=== PATIENT | female | born 1945 | race African-American/Black ===

== ENCOUNTER 2019-11-10 09:46 | Inpatient (IN) | payer MEDICARE, MEDICAID ==
[~2019-11-10] VITALS: Ht 162.6 cm; Wt 92.6 kg
[2019-11-10] MEDS ORDERED: ACETAMINOPHEN 325MG TABLET PO STA (16:18)
[2019-11-10] MEDS ORDERED: SODIUM CHLORIDE 0.9% 1,000 ML IV ONE (16:18)
[2019-11-10 17:17] LABS: BASOPHILS % 1.2 % (0.0-2.0); EOSINOPHILS % 0.6 % (0.0-5.0); HEMATOCRIT. 45.6 % (36.0-48.0); HEMOGLOBIN. 15.4 g/dL (12.0-16.0); LYMPHOCYTES % 29.9 % (20.0-50.0); MEAN CORPUSCULAR VOLUME 80.3 fL (81.0-99.0); MEAN PLATELET VOLUME 9.3 fl (7.4-10.4); MONOCYTES % 7.5 % (2.0-8.0); NEUTROPHILS % 60.8 % (40.0-76.0); PLATELET 260 x1000/uL (130-400); RED BLOOD CELL COUNT 5.68 mill/uL (4.2-5.4); RED CELL DISTRIBUTION WIDTH 14.3 % (11.6-14.6)
[2019-11-10 17:21] LABS: CHLORIDE 102 mEq/L (98-107)
[2019-11-10 17:28] LABS: BETA HYDROXYBUTYRATE 0.5 mMol/L (0.0-0.3); INR 1.1; PROTHROMBIN TIME 10.9 sec (9.6-11.0)
[2019-11-10] MEDS ORDERED: ASPIRIN 81MG TABLET PO ONE (18:30)
[2019-11-10] MEDS ORDERED: ENOXAPARIN 80MG/0.8ML SYR SUBCUT ONE (18:30)
[2019-11-10 19:28] LABS: CLARITY URINE TURBID (CLEAR); COLOR URINE YELLOW (YELLOW); KETONES URINE TRACE (NEGATIVE); LEUKOCYTE ESTERASE URINE 2+ (NEGATIVE); NITRITE URINE NEGATIVE (NEGATIVE); OCCULT BLOOD URINE 2+ (NEGATIVE); PROTEIN URINE 3+ (NEGATIVE); SPECIFIC GRAVITY URINE 1.022 (1.005-1.030); UROBILINOGEN URINE 0.2 E.U./dL (0.2-1.0)
[2019-11-11] VITALS (10 sets, daily range): BP systolic 90–175; BP diastolic 54–96
[2019-11-11] MEDS ORDERED: ONDANSETRON HCL 4MG/2ML INJ IV PRN (00:45)
[2019-11-11] MEDS ORDERED: CLONIDINE 0.2MG TABLET PO PRN (00:45)
[2019-11-11] MEDS ORDERED: IPRATROPIUM/ALBUTEROL 0.5-3(2.5)MG/3ML NEB HHN PRN (00:45)
[2019-11-11] MEDS ORDERED: MAGNESIUM/ALUMINUM HYDROXIDE/SIMETHICONE 30ML UDC PO PRN (00:45)
[2019-11-11] MEDS ORDERED: DIPHENHYDRAMINE 50MG/ML VIAL IV PRN (00:45)
[2019-11-11] MEDS ORDERED: DEXTROSE 50% WATER 50ML SYRINGE IV PRN (00:45)
[2019-11-11] MEDS: SODIUM CHLORIDE 0.9% INJ 3ML FLUSH IVF SCH ×3 (05:27→21:11)
[2019-11-11] MEDS: CLONIDINE 0.1MG TABLET PO SCH ×3 (05:27→21:07)
[2019-11-11] MEDS: BLOOD SUGAR DIAGNOSTIC STRIP TEST SCH ×4 (07:30→21:11)
[2019-11-11] MEDS: INSULIN LISPRO 100 UNITS/ML SUBCUT SCH ×4 (08:00→21:00)
[2019-11-11] MEDS ORDERED: FAMOTIDINE 20MG TABLET PO SCH (09:00)
[2019-11-11] MEDS ORDERED: ASPIRIN 81MG EC TABLET PO SCH (09:00)
[2019-11-11] MEDS: INSULIN GLARGINE UD 100 UNITS/ML SYR SUBCUT SCH (10:12)
[2019-11-11] MEDS: GUAIFENESIN 200MG/10ML SUGAR FREE UDC PO PRN ×2 (10:15→17:23)
[2019-11-11] MEDS ORDERED: REGADENOSON 0.4 MG/5 ML IV SCH (11:45)
[2019-11-11] MEDS: ACETAMINOPHEN 325MG TABLET PO PRN (17:23)
[2019-11-11] MEDS: ATORVASTATIN CALCIUM 40MG TABLET PO SCH (21:07)
[2019-11-11] MEDS: FAMOTIDINE 40MG TABLET PO SCH (21:08)
[2019-11-11] MEDS: METOPROLOL TARTRATE 25MG TABLET PO SCH (21:08)
[2019-11-12] VITALS (13 sets, daily range): BP systolic 94–165; BP diastolic 14–86
[2019-11-12] MEDS: CLONIDINE 0.1MG TABLET PO SCH ×3 (06:00→23:01)
[2019-11-12] MEDS: BLOOD SUGAR DIAGNOSTIC STRIP TEST SCH ×4 (07:30→21:58)
[2019-11-12] MEDS: INSULIN LISPRO 100 UNITS/ML SUBCUT SCH ×4 (08:02→22:10)
[2019-11-12] MEDS: ASPIRIN 81MG TABLET PO SCH (08:03)
[2019-11-12] MEDS: FAMOTIDINE 40MG TABLET PO SCH ×2 (08:03→22:08)
[2019-11-12] MEDS: METOPROLOL TARTRATE 25MG TABLET PO SCH ×2 (08:03→22:08)
[2019-11-12] MEDS: SODIUM CHLORIDE 0.9% INJ 3ML FLUSH IVF SCH ×3 (08:17→23:01)
[2019-11-12] MEDS: INSULIN GLARGINE UD 100 UNITS/ML SYR SUBCUT SCH (10:12)
[2019-11-12] MEDS: ACETAMINOPHEN 325MG TABLET PO PRN ×2 (13:48→22:07)
[2019-11-12] MEDS ORDERED: KETOROLAC 30MG/ML VIAL IV PRN (15:00)
[2019-11-12] MEDS: ATORVASTATIN CALCIUM 40MG TABLET PO SCH (22:08)
[2019-11-13] VITALS (7 sets, daily range): BP systolic 117–144; BP diastolic 59–83
[2019-11-13] MEDS: CLONIDINE 0.1MG TABLET PO SCH ×2 (05:52→18:43)
[2019-11-13] MEDS: SODIUM CHLORIDE 0.9% INJ 3ML FLUSH IVF SCH ×2 (05:56→14:00)
[2019-11-13] MEDS: BLOOD SUGAR DIAGNOSTIC STRIP TEST SCH ×3 (07:30→17:30)
[2019-11-13] MEDS: FAMOTIDINE 40MG TABLET PO SCH (09:26)
[2019-11-13] MEDS: METOPROLOL TARTRATE 25MG TABLET PO SCH (09:26)
[2019-11-13] MEDS: ASPIRIN 81MG TABLET PO SCH (09:26)
[2019-11-13] MEDS: INSULIN LISPRO 100 UNITS/ML SUBCUT SCH ×3 (09:27→17:41)
[2019-11-13] MEDS: INSULIN GLARGINE UD 100 UNITS/ML SYR SUBCUT SCH (09:27)
[2019-11-13] MEDS ORDERED: REGADENOSON 0.4 MG/5 ML IV ONE (11:40)
[2019-11-13] MEDS ORDERED: FUROSEMIDE 40MG/4ML VIAL IVP NR (15:15)
[2019-11-13] MEDS ORDERED: CLOPIDOGREL 75MG TABLET PO ONE (15:45)
[2019-11-13] MEDS ORDERED: CLOPIDOGREL 75MG TABLET PO NR (15:45)
[2019-11-13] MEDS ORDERED: FUROSEMIDE 40MG TABLET PO NR (18:00)
[2019-11-13] MEDS ORDERED: CARVEDILOL 12.5MG TABLET PO SCH (21:00)
[2019-11-13] MEDS ORDERED: CARVEDILOL 6.25 MG TABLET PO SCH (21:00)
[2019-11-14] MEDS ORDERED: CLOPIDOGREL 75MG TABLET PO SCH (09:00)
[2019-11-14] MEDS ORDERED: LISINOPRIL 5MG TABLET PO SCH (09:00)
== END 2019-11-13 19:24 | disposition home or self-care (01) | DRG 280 ==
LOC: ER 10:26 → 5EST 18:42 → EDBEDREQ 18:49 → EDBEDREQSVC 18:49 → ENRESERV 23:45 → 5EST 11-11 02:19
PROVIDERS: ADMIT Internal Medicine; ATTEND Internal Medicine
DX: I21.4 Non-ST elevation (NSTEMI) myocardial infarction (principal); I50.23 Acute on chronic systolic (congestive) heart failure; I25.10 Atherosclerotic heart disease of native coronary artery without angina pectoris; E11.65 Type 2 diabetes mellitus with hyperglycemia; E78.5 Hyperlipidemia, unspecified; I11.0 Hypertensive heart disease with heart failure; M19.90 Unspecified osteoarthritis, unspecified site; J44.9 Chronic obstructive pulmonary disease, unspecified; I50.9 Heart failure, unspecified; E66.9 Obesity, unspecified; I16.0 Hypertensive urgency; I25.2 Old myocardial infarction; Z95.5 Presence of coronary angioplasty implant and graft; Z87.891 Personal history of nicotine dependence; Z82.49 Family history of ischemic heart disease and other diseases of the circulatory system; Z79.899 Other long term (current) drug therapy; Z79.02 Long term (current) use of antithrombotics/antiplatelets; Z68.35 Body mass index [BMI] 35.0-35.9, adult
CPT/HCPCS: 36415; 71045; 78452; 80048; 80053; 80061; 81003; 82010; 82962; 83036; 83605; 83735; 83880; 84443; 84484; 85025; 93005; 93017; 93306; 93970; 96372; 99291; A9500; C1893; J1650; J1815; J1885; J2785; J7030